=== PATIENT | male | born 1955 | race Caucasian/White ===

== ENCOUNTER 2016-11-09 08:06 | Day surgery (SDC) | payer OTHER ==
[~2016-11-09] VITALS: Ht 170.2 cm; Wt 89.3 kg
[2016-11-09] MEDS ORDERED: SODIUM CHLORIDE 0.9% FLUSH 10 ML FLUSH IV FLUSH PRN (08:45)
[2016-11-09] MEDS ORDERED: SODIUM CHLORIDE FLUSH PRN IV FLUSH (08:45)
[2016-11-09] MEDS ORDERED: SODIUM CHLORIDE FLUSH BID IV FLUSH SCH (09:00)
[2016-11-09] MEDS ORDERED: SODIUM CHLORIDE 0.9% FLUSH 10 ML FLUSH IV FLUSH SCH (09:00)
[2016-11-09 09:10] VITALS: BP 127/68; PULSE 58; RESP 18; TEMP 98.1; O2SAT 97
[2016-11-09] MEDS ORDERED: OMEP20TA PO (09:20)
[2016-11-09] MEDS ORDERED: PRED20 PO (09:20)
[2016-11-09] MEDS ORDERED: FENO145T2 PO (09:20)
[2016-11-09] MEDS ORDERED: CLOP75TA PO (09:20)
[2016-11-09] MEDS ORDERED: ASPI81TA5 PO (09:20)
[2016-11-09] MEDS ORDERED: LISI-519 PO (09:20)
[2016-11-09] MEDS ORDERED: GLIM4TAB PO (09:20)
[2016-11-09] MEDS ORDERED: TAMS0.4C4 PO (09:20)
[2016-11-09] MEDS ORDERED: ZETI10TA5 PO (09:20)
[2016-11-09] MEDS ORDERED: ATOR1TAB18 PO (09:20)
[2016-11-09] MEDS ORDERED: METF1000 PO (09:20)
[2016-11-09] MEDS ORDERED: METO25TA3 PO (09:20)
[2016-11-09] MEDS ORDERED: MIDAZOLAM HCL 5 MG/5 ML VIAL ONE (11:21)
[2016-11-09] MEDS ORDERED: HEPARIN-NS/PF INJ 500 ML ONE ×2 (11:22→11:58)
[2016-11-09] MEDS ORDERED: HEPARIN SODIUM - IV 10,000 UNITS/10 ML VIAL ONE (11:49)
[2016-11-09] MEDS ORDERED: ATROPINE SULFATE 1 MG/ML VIAL IV PRN (12:30)
[2016-11-09] MEDS ORDERED: MORPHINE SULFATE 4 MG/ML INJ IV PUSH PRN (12:30)
[2016-11-09] MEDS ORDERED: oxyCODONE/ACETAMINOPHEN 10 MG/325 MG TAB PO PRN (12:30)
[2016-11-09] MEDS ORDERED: oxyCODONE/ACETAMINOPHEN 5 MG/325 MG TAB PO PRN (12:30)
[2016-11-09] MEDS ORDERED: LIDOCAINE HCL 1% 50 ML VIAL INFIL PRN (12:30)
[2016-11-09] MEDS ORDERED: TEMAZEPAM 15 MG CAP PO PRN (12:30)
[2016-11-09] MEDS ORDERED: MISC INFORMATION XX ONE (12:30)
[2016-11-09] MEDS ORDERED: SODIUM CHLOR 0.9% 250 ML INJ 250 ML IV PRN (12:30)
[2016-11-09] MEDS ORDERED: LORazepam 2 MG/ML VIAL IV PRN (12:30)
[2016-11-09] MEDS ORDERED: BACITRACIN OINT 0.9 GM PKT TOP ONE (12:30)
--- NOTE | 2016-11-09 12:36 | CATHPROC ---
[facility] HIS Report Study Information Study Number Admission Scheduled Start Study Start [id number] Nov 09 2016 8:06AM 11/09/2016 Nov 09 2016 11:08AM [place] Service Cath Endovascular Study Admit Source Facility Department Other [facility] - Patient Access Representative Physician and Clinical Staff Initial Vasile [employer] Manager Shane Bear,JESSICA Recorder Terrell Martínez,RT(R) Scrub Pedrito Gamble,RT(R) Procedures Performed Procedure Location (Site) Vessel Name Abdominal Angiogram Abd Aorta (A3) Aorta Angiogram (manual) Fem Art (left) Femoral Art ELECTRIC MOTOR FITTER SFA (right) Femoral Art Equipment Time State'S Attorney Description Size Mfg Part Number Used/Scraped DBP- CARDIOVASCULAR CATHETER, STEALTH SOLID 11:57 [id number] Used SYSTEMS INC. 2.0MM *[id number] CARDIOVASCULAR VPR-GW-14 11:51 WIRE, FIRM (VIPER) 335 Used SYSTEMS INC. *[id number] 532-523 11:28 CORDIS/ AUDIE RIM SUPER TORQUE CATHETER FR 5 Used *[id number] *[id number] 12:24 DAIG/ST. JOHN MEDICAL ANGIOSEAL, FR6 VIP FR 6 Used *[id number] BALLOON, ADMIRAL EXTREME 6 [id number] 12:05 [employer] 130CM Used X 120 130CM *[id number] BALLOON, ADMIRAL IN.PACT 6 X [id number] 12:12 [employer] 130CM Used 150 130CM *[id number] CATHETER, FR5 TRAILBLAZER [id number]-[id number] 11:51 [employer] 135CM Used .035 *[id number] CATHETER, FR5 TRAILBLAZER SC-035-135 11:50 [employer] 135CM Used .035 *[id number] 11:28 MALLINCKRODT SYRINGE, ANGIOMAT 150ML 150ML [id number] Used [id number] 11:28 MEDLINE INDUSTRIES PACK, CCL CUSTOM * Used *[id number] 11:28 MEDLINE PACER PEN, SKIN DUAL W/ RULER * Used *[id number] 11:28 Krikle MEDICAL WIRE, EXCHANGE 260CM 3MMJ 260CM Used *[id number] 11:28 NAMIC MANIFOLD, 4 PORT * Used *[id number] 11:28 NAMIC TUBING, HIGH PRESSURE 48" 48" Used *[id number] 11:28 NYCOMED OMNIPAQUE, 300 MG, 150ML 150ML [id number] Used [id number] 11:28 MEDINA MEDICAL BLANKET,WARM AIR CCL * Used *[id number] 11:28 TERUMO MEDICAL SHEATH, FR5 TERUMO (10CM) FR 5 [id number] Used SHEATH, FR6 PINNACLE [id number] 11:50 TERUMO MEDICAL/AUDIE FR 6 Used DESTINATION 45CM *[id number] WIRE, ANGLE GLIDE STIFF .035 [id number] 11:28 TERUMO MEDICAL/AUDIE 260CM Used 260CM *[id number] Equipment Model, Serial, Lot Number and Expiration Data Description Model Number Serial Number Lot Number Expiration Date CATHETER, STEALTH SOLID 2.0MM [id number] 07-27-2018 WIRE, FIRM (VIPER) 335 [id number] 07-27-2018 History: Current Medications Medication Dosage/Unit Route Frequency Last Date/Time Taken ASA Statins (any) LISINOPRIL Glucophage Prilosec Zieta PLAVIX History: Allergies Allergy Reaction Iodine Premedicated History: Risk Factors Family History of Hypertension Dyslipidemia Previous SD Previous Heart Failure Premature CAD Yes Yes No No No Prior Valve Prior PCI Prior CABG Surgery No No No Cerebrovascular Peripheral Artery Chronic Lung On Dialysis Diabetes Diabetes Therapy Disease Disease Disease No No Yes No Yes Oral History: Stress Tests Stress or Imaging Studies Performed No History: Other Current Smoker Method Packs a Day Years Used Pack Years Yes Cigarettes 1 50 50 Labs Hgb (g/dl) Hct (%) RBC (MIL/MM3) WBC (l/cumm) Platelets (thousands) 11.60-17.00 35.00-51.00 4.00-5.90 4.00-11.00 150.00-450.00 15.2 44.9 4.4 5.9 141 Glucose (mg/dl) BUN (mg/dl) Creatinine (mg/dl) BUN:Creatinine (1:x) 74.00-106.00 7.00-18.00 0.50-1.30 10.00-20.00 236 21 9.0 2.3 Na (meq/l) K (meq/l) Cl (meq/l) CO2 (mmol/L) Ca (mg/dl) 136.00-145.00 3.50-5.10 98.00-107.00 21.00-32.00 8.50-10.10 141 4.2 100 22 9.7 PT (sec) INR (PTT:PT) 9.80-11.60 0.90-1.10 10.2 1 CPK-MB (ng/ML) 0.50-3.60 Not Drawn Medication Medication Total Dose (Bolus/Oral) Medication Total Dosage/Unit 1% XYLOCAINE 20 mL FENTANYL 50 mcg HEPARIN 5000 units NITROGLYCERIN S/L 100 mcg VERSED 2 mg Medications (Bolus/Oral) Medication Time Given Dosage/Unit Administered By Reason 1% XYLOCAINE 11/09/2016 11:35:56 AM 20 mL Vasile Duncan 20 mL 1% XYLOCAINE given in lab by Vasile Duncan in Left Groin via Subcutaneous. VERSED 11/09/2016 11:36:07 AM 2 mg Shane Bear 2 mg VERSED given in lab by Shane Bear RN in Left Antecubital via Peripheral IV. FENTANYL 11/09/2016 11:36:12 AM 50 mcg Shane Bear 50 mcg FENTANYL given in lab by Shane Bear RN in Left Antecubital via Peripheral IV. HEPARIN 11/09/2016 11:55:25 AM 5000 units Shane Bear 5000 units HEPARIN given in lab by Shane Bear RN via Peripheral IV. NITROGLYCERIN S/L 11/09/2016 12:03:04 PM 100 mcg Vasile Duncan 100 mcg NITROGLYCERIN given in lab by Vasile Duncan via Intra-arterial. Initial Case Assessment Cardiovascular HR Rhythm NIBP Chest Pain 52 sinus 148/74 0 Edema Present Skin color Skin None Normal Warm Dry Circulatory - Right Pulses Dorsalis Pedis Posterior Tibial Femoral d d 2 Scale (0,1,2,3,4,d) Circulatory - Left Pulses Dorsalis Pedis Posterior Tibial Femoral d d 2 Scale (0,1,2,3,4,d) Neurological State Oriented to time-place- Alert Moves all extremities person Respiration - General Respiration Rate SpO2 (%) O2 (lpm) (B/min) 19 99 0 Final Case Assessment Cardiovascular HR Rhythm NIBP Chest Pain 47 sinus 144/77 0 Edema Present Skin color Skin None Normal Warm Dry Circulatory - Right Pulses Dorsalis Pedis Posterior Tibial Femoral d d 2 Scale (0,1,2,3,4,d) Circulatory - Left Pulses Dorsalis Pedis Posterior Tibial Femoral d d 2 Scale (0,1,2,3,4,d) Neurological State Oriented to time-place- Alert Moves all extremities person Respiration - General Respiration Rate SpO2 (%) O2 (lpm) (B/min) 20 99 0 Chronological Log Time Study Chronological Log : Patient arrived via Bed. 11:: Patient Name, D.O.B, / Armband Verified By R.N. : Consent signed by the physician and the patient and verified by the Patient Access Representative staff. 11:: Pre-op and post- op instructions given; patient acknowledges understanding of instructions. 11::29 Verbal Stimulation=2 Physical Stimulation=2 Airway=2 Respiration=2 TOTAL=8. (0=absent, 1=li mited, 2=present) Vitals capture started with the following parameters, Patient=Adult, Interval=5 min, Initial Pr vjypzr=384 mmHg, 11:20:14 Deflation Rate=5 mmHg 11:21:06 HR=52 bpm, WYYX=057/74 mmhg, SpO2=98.0 %, Resp=19 B/min, Pain=0, Margaret=10, Faith=2 11:26:33 HR=62 bpm, XCDY=607/48 mmhg, SpO2=97.0 %, Resp=22 B/min, Pain=0, Margaret=10, Faith=2 11:29:28 MD arrived. 11:30:58 HR=50 bpm, ARLT=729/63 mmhg, SpO2=98.0 %, Resp=14 B/min, Pain=0, Margaret=10, Faith=2 11:31:52 Patient has been NPO for More than 6Hrs. Skin Breakdown-none 11:31:53 11:31:57 Patient Warmer Placed on the Table. 11:31:58 Fuad Prominences Protected 11:32:00 A # 20 IV was noted in the Antecubital (left). Grade = 0 11:32:01 History and physical on the chart or being dictated. Assessment: Initial Case, HR=52 BPM, Rhythm=sinus, AYZX=156/74 mmhg, Chest Pain=0, Edema=None, Color=Normal, Skin = Warm, Dry Right Pulses: Memo Ped=d, Post Tib=d, Femoral=2 11:32:02 Left Pulses: Memo Ped=d, Post Tib=d, Femoral=2 Neurological: State=Alert, Ox3, WORLEY Respiration: Resp=19 B/min, SpO2=99 %, O2=0 lpm 11:32:15 Reference ECG taken 11:32:20 Bilateral groins prepped with 2% chlorhexidine, and with a 3 min. waiting time. Time Out. Correct patient, correct procedure,correct physician, power injector not loaded with contrast with surgical 11:33:06 team present. Time Out Concurred by , individual staff in procedure 11:34:14 Case Start 11:34:57 Pressure channel 1 zeroed. 11:35:55 HR=68 bpm, LRCL=783/62 mmhg, SpO2=98.0 %, Resp=18 B/min, Pain=0, Margaret=10, Faith=2 11:35:56 20 mL 1% XYLOCAINE given in lab by Vasile Duncan in Left Groin via Subcutaneous. 11:36:07 2 mg VERSED given in lab by Shane Bear, RN in Left Antecubital via Peripheral IV. 11:36:12 50 mcg FENTANYL given in lab by Shane Bear, JESSICA in Left Antecubital via Peripheral IV. 11:40:08 Access site was Left Femoral Artery. 11:40:20 A SHEATH, FR5 TERUMO (10CM) FR 5 was advanced into the Fem Art (left) using the Percutaneou s technique. 11:40:50 HR=99 bpm, ZPAV=055/65 mmhg, SpO2=99.0 %, Resp=20 B/min, Pain=0, Margaret=10, Faith=2 A PIGTAIL ANG. INFINITI CATHETER FR 5 was advanced over a wire. OMNIPAQUE, 300 MG, 150ML 150ML was used 11:40:57 for injections. 11:43:46 Through a PIGTAIL ANG. INFINITI CATHETER FR 5, The Abdominal Aorta was injected with 12 cc' s of contrast. 11:45:51 HR=64 bpm, VEOR=164/57 mmhg, SpO2=97.0 %, Resp=20 B/min, Pain=0, Margaret=10, Faith=2 11:47:00 Right lower extremity run-off in progress. 11:49:22 Stiff glide wire was inserted down into the right SFA 11:50:48 HR=68 bpm, SIFZ=489/59 mmhg, SpO2=98.0 %, Resp=20 B/min, Pain=0, Margaret=10, Faith=2 A SHEATH, FR6 PINNACLE DESTINATION 45CM FR 6 was exchanged in the Fem Art (left). This was nece ssary in order 11:52:40 for catheter support. A CATHETER, FR5 TRAILBLAZER .035 135CM was advanced over a wire. OMNIPAQUE, 300 MG, 150ML 150ML was 11:53:51 used for injections. 11:55:25 5000 units HEPARIN given in lab by Shane Bear RN via Peripheral IV. 11:55:55 HR=68 bpm, GXXZ=405/56 mmhg, SpO2=98.0 %, Resp=20 B/min, Pain=0, Margaret=10, Faith=2 11:56:47 The previous wire was exchanged for a WIRE, FIRM (VIPER) 335. 11:57:50 Trailblazer support catheter was removed 11:59:16 An CATHETER, STEALTH SOLID 2.0MM catheter was inserted into the Fem Art (left). 11:59:48 Atherectomy in progress in the Right SFA 12:00:54 HR=83 bpm, NIBP=99/55 mmhg, SpO2=98.0 %, Resp=20 B/min, Pain=0, Margaret=10, Faith=2 12:03:04 100 mcg NITROGLYCERIN given in lab by Vasile Duncan via Intra-arterial. 12:05:49 HR=87 bpm, YPBV=424/62 mmhg, SpO2=97.0 %, Resp=20 B/min, Pain=0, Margaret=10, Faith=2 A BALLOON, ADMIRAL EXTREME 6 X 120 130CM 130CM was inserted over WIRE, FIRM (VIPER) 335 via the SFA 12:05:57 (right). 12:06:17 In the SFA (right) a BALLOON, ADMIRAL EXTREME 6 X 120 130CM 130CM was inflated to 10 atms f or 20 seconds. 12:07:53 Random balloon inflations performed in the right SFA 12:10:52 HR=67 bpm, JLKV=504/67 mmhg, SpO2=97.0 %, Resp=20 B/min, Pain=0, Margaret=10, Faith=2 12:11:48 Balloon Removed. A BALLOON, ADMIRAL IN.PACT 6 X 150 130CM 130CM was inserted over WIRE, ANGLE GLIDE STIFF .035 260CM 12:11:53 260CM via the SFA (right). 12:12:11 In the SFA (right) a BALLOON, ADMIRAL IN.PACT 6 X 150 130CM 130CM was inflated to 8 atms f or 180 seconds. 12:15:55 HR=46 bpm, CYYE=819/66 mmhg, SpO2=99.0 %, Resp=15 B/min, Pain=0, Margaret=10, Faith=2 12:16:40 Balloon Removed. 12:20:54 HR=50 bpm, WBME=362/72 mmhg, SpO2=99.0 %, Resp=19 B/min, Pain=0, Margaret=10, Faith=2 12:23:01 Fem Art (left) angiogram, manually injected. 12:23:55 ANGIOSEAL, FR6 VIP FR 6 placement in the Fem Art (left) 12:24:17 No case complications noted. 12:24:18 Sterile dressing applied to site 12:24:19 Cine recording checked. 12:24:28 Case End 12:24:32 Bedside Report will be given. 12:24:37 Implantable Device card placed in patient's chart. Assessment: Final Case, HR=47 BPM, Rhythm=sinus, UETQ=877/77 mmhg, Chest Pain=0, Edema=None, Color=Normal, Skin = Warm, Dry Right Pulses: Memo Ped=d, Post Tib=d, Femoral=2 12:24:39 Left Pulses: Memo Ped=d, Post Tib=d, Femoral=2 Neurological: State=Alert, Ox3, WORLEY Respiration: Resp=20 B/min, SpO2=99 %, O2=0 lpm 12:25:55 HR=47 bpm, FAJP=074/77 mmhg, SpO2=98.0 %, Resp=30 B/min, Pain=0, Margaret=10, Faith=2 12:30:56 Vitals capture stopped. End Study - Contrast Media Used In Study Contrast Total Opened (mL) Total Used (mL) Total Wasted (mL) Omnipaque 150 120 30 End Study - Maximum Contrast Load Max Contrast Load (mL) 49.6 End Study - Radiation Exposure Fluoro Time (minutes) 9.6 End Study - Patient Disposition Complications Transferred To Interventional Outcome No Outpatient Bed successful
--- NOTE | 2016-11-09 13:01 | MA ---
cc: JUAN HUFF DATE 11/09/2016 Peripheral angiography and intervention. PROCEDURE PERFORMED 1. Fluoroscopy with interpretation 2. Bilateral lower extremity peripheral angiography first, second, third order visualization interpretation. 3. Descending aortography 4. Orbital rotational atherectomy and balloon angioplasty with drug coated balloon of the right superficial femoral artery. METHOD The risks, benefits and alternatives discussed with the patient. The patient understood and consented to the procedure. The patient brought into the catheterization lab. The patient was placed on the catheterization table. The left groin was prepped and draped in a sterile fashion. The left common femoral artery was cannulated and a 5-Hungarian 11 cm sheath was placed without difficulty. DESCENDING AORTOGRAPHY Descending aorta has mild luminal irregularities. Bilateral renal arteries are widely patent. PERIPHERAL ANGIOGRAPHY 1. Right common internal and external iliac arteries have moderate calcium present, but only minor luminal irregularities. The Right common femoral and profunda arteries are widely patent. The right superficial femoral artery has an 80% tandem stenosis in the mid to distal segment which is moderately calcified. The popliteal artery has minor luminal irregularities. There is three-vessel runoff below the knee in the right lower extremity. 2. The left internal and external common iliac arteries have minor luminal irregularities. The left common femoral and profunda arteries have minor luminal irregularities. The left superficial femoral artery has a 75% eccentric stenosis in the mid segment with heavy calcium present. The popliteal artery has minor luminal irregularities. There is three-vessel runoff below the knee in the left lower extremity. PERIPHERAL ANGIOGRAPHY A 6-Hungarian 45 cm Terumo [employer] pinnacle sheath was advanced into the right superficial femoral artery over the arch. A Glidewire was advanced down to the distal posterior tibial artery. A 0.035 inches 135 cm trailblazer catheter was then advanced down to the distal posterior tibial artery and a 0.014, 3 Hz 35 cm viper wire navigated down the distal vessel. Trailblazer catheter removed. A 2.0 mm CSI atherectomy catheter was then prepped and advanced over the arch. Orbital rotational atherectomy was performed on four sequential passes through the mid to distal right superficial femoral artery. The distal SFA was then dilated with a 6.0 x 120 mm Medtronic balloon and then a second inflation with a 6.0 x 150 mm drug coated balloon was deployed in the mid to distal superficial femoral artery. Repeat angiography showed only minor luminal irregularities, JESUSITA-III flow. The wire was removed. The sheath was then removed and a 6-Hungarian Angio-Seal deployed with good hemostasis. CONCLUSIONS 1. Severe bilateral superficial femoral artery stenosis. 2. Mild descending aortic atherosclerosis. 3. Successful orbital rotational atherectomy and balloon angioplasty with a drug coated balloon in the right superficial femoral artery. PLAN We will see how well this translates for symptomatic improvement. He now has recurrence of the stenosis in the mid left SFA. We will see how he is doing clinically and see if we can medically manage it, otherwise we may need to bring him back and potentially stent the left superficial femoral artery. Hopefully he will go home today and continue on Plavix therapy. MD SHIREEN Alva/ZARIA /12:36 PM /12:54 PM
== END 2016-11-09 18:06 | disposition home or self-care (01) ==
LOC: HSDC 08:06 → HDIC 08:07 → HSDC 18:06
PROVIDERS: ATTEND Internal Medicine
DX: I70.203 Unspecified atherosclerosis of native arteries of extremities, bilateral legs (principal); I70.0 Atherosclerosis of aorta; E11.9 Type 2 diabetes mellitus without complications
CPT/HCPCS: 37225; 75716; 85002; 86850; 86900; 86901; C1714; C1725; C1751; C1769; C1893; C2623; G0269; J1644; J2250; J3010